=== PATIENT | male | born 1980 | race African-American/Black ===

== ENCOUNTER 2016-04-16 11:03 | Emergency (ER) | payer SELFPAY ==
--- NOTE | 2016-04-16 11:37 | ERRECORD ---
[facility] EMERGENCY RECORD HPI URI (11:29 [facility]) CHIEF COMPLAINT: Patient presents for evaluation of nasal congestion, Patient presents for evaluation of cough. HISTORIAN: History provided by patient, 36M presents with complaints of subjective fever, chills, body aches, and nasal congestion. States symptoms began last night. Denies chest pain or shortness of breath. Denies travel or IV drug use. Reports mild headache, denies neck stiffness. Denies abdominal pain or dysuria. LOCATION: Symptoms are generalized. TIME COURSE: Gradual onset of symptoms, Symptoms are worsening. ASSOCIATED WITH: Associated with chills, Associated with fever, Associated with headache, No associated neck pain, No associated shortness of breath. EXACERBATED BY: Patient's condition exacerbated by nothing. RELIEVED BY: Patient's condition relieved by over the counter medications. ROS (11:31 [facility]) CONSTITUTIONAL: Historian reports chills, reports fever, reports malaise. EYES: Negative eye review of systems, Historian denies eye pain, denies eye discharge, denies vision changes. ENT: Historian reports sinus pain, reports sore throat. congestion. CARDIOVASCULAR: Negative cardiovascular review of systems, Historian denies chest pain, denies palpitations. RESPIRATORY: Negative respiratory review of systems, Historian denies cough, denies shortness of breath. GI: Negative gastrointestinal review of systems, Historian denies abdominal pain, denies constipation, denies diarrhea, denies nausea, denies vomiting. GENITOURINARY MALE: Negative genitourinary review of systems, Historian denies dysuria, denies hematuria. MUSCULOSKELETAL: Negative musculoskeletal review of systems, Historian denies back pain, denies fall, denies injury, denies neck pain. SKIN: Negative skin review of systems, Historian denies rash, denies skin changes. NEUROLOGIC: Negative neurologic review of systems, Historian denies headache. HEMO/LYMPHATIC: Normal hematologic/lymphatic system review, Historian denies abnormal blood clotting. PAST MEDICAL HISTORY (11:10 [facility]) MEDICAL HISTORY: No past medical history, Flu vaccine up to date, Tetanus immunization up to date, Pneumococcal vaccine not up to date. MALE SURGICAL HISTORY: Patient has no surgical history. PSYCHIATRIC HISTORY: No previous psychiatric history. &a-1R&a+25V*p+0X*[id number]*c202B*c15G*c2P*p-0X&a-25V&a+1R Name: Ryan Vazquez : 1980 M36 MedRec: [id number] AcctNum: [id number] Prepared: Joselyn Apr 16, 2016 11:34 by Interface Page [address] [facility] EMERGENCY RECORD SOCIAL HISTORY: Patient drinks socially, Patient denies drug use, Patient has no smoking history. KNOWN ALLERGIES No Known Drug Allergies CURRENT MEDICATIONS (11: [facility]) None VITAL SIGNS (11: [facility]) VITAL SIGNS: BP: 117/88, Pulse: 57, Resp: 18, Temp: 98.2 (Oral), Pain: 8, O2 sat: 96 on Room Air, Time: 04/16/2016 11:09. PHYSICAL EXAM (11:31 [facility]) CONSTITUTIONAL: Vital signs reviewed, Patient afebrile, Pulse normal, Blood pressure normal, Respiratory rate normal, Patient appears non toxic, Patient appears pain free, Patient alert and oriented to person, place and time. HEAD: Head exam normal, Head exam included findings of head atraumatic, normocephalic. EYES: Eye exam normal, Eye exam included findings of eyelids normal to inspection, Pupils equally round and reactive to light, Extraocular muscles intact, no nystagmus. ENT: ENT exam normal, Ear exam normal, external ear normal, tympanic membranes normal, no bleeding, Pharynx exam normal, Uvula exam normal, Tonsil exam normal, Mouth exam normal, mucous membranes moist, teeth normal. NECK: Neck exam normal, Neck exam included findings of normal range of motion, Trachea midline, no meningeal signs, no cervical adenopathy, no tenderness. RESPIRATORY CHEST: Respiratory and chest exam normal, Respiratory exam included findings of no respiratory distress, Breath sounds clear. CARDIOVASCULAR: Cardiovascular assessment normal, Cardiovascular exam included findings of heart rate regular rate and rhythm, Heart sounds normal. ABDOMEN MALE: Abdominal exam included findings of abdomen nontender, Bowel sounds normal, no distension, no mass, no pulsatile masses, no peritoneal signs, no rigidity, no guarding, no rebound, Rovsing's sign absent. BACK: Back exam normal, Back exam included findings of normal inspection, range of motion normal, no tenderness. UPPER EXTREMITY: Upper extremity exam normal, Upper extremity exam included findings of inspection normal, Range of motion normal, Motor strength normal, Sensation intact, Radial pulse normal. LOWER EXTREMITY: Lower extremity exam normal, Lower extremity exam included findings of inspection normal, Range of motion normal, Motor strength normal, Sensation intact, Posterior tibial pulse normal, Pedal pulse normal. NEURO: Neuro exam normal, Neuro exam findings include patient &a-1R&a+25V*p+0X*c5805R*c202B*c15G*c2P*p-0X&a-25V&a+1R Name: Ryan Vazquez : 1980 6 MedRec: [id number] AcctNum: [id number] Prepared: [facility] Apr 16, 2016 11:34 by Interface Page [address] [facility] EMERGENCY RECORD oriented to person, place and time, Speech normal, Gait normal. SKIN: Skin exam normal, Skin exam included findings of skin warm, dry, and normal in color, no rash. PSYCHIATRIC: Psychiatric exam normal, Normal affect. DOCTOR NOTES (11:32 [facility]) TEXT: Patient presented with signs and symptoms consistent with viral syndrome. well appearing, non-toxic patient without evidence of concerning bacterial illness such as meningitis or pneumonia that would require further workup or investigation. Tolerating oral intake without difficulty. Appropriate for outpatient management with oral fluids and antipyretics. Needs follow up with primary physician in the next 2-3 days for re-evaluation. PATIENT STATUS: Patient's status is unchanged since arrival to emergency department. PATIENT PLAN: The patient will be discharged, The patient will follow up with primary care physician. PROBLEM LIST No recorded problems DIAGNOSIS (11:20 [facility]) FINAL: PRIMARY: Viral infection. PRESCRIPTION No recorded prescriptions DISPOSITION PATIENT: Disposition Type: Discharge, Disposition: *Discharge Home. (11:20 [facility]) Patient left the department. (11:28 [facility]) English: SYED=MD Eliana, Girish KMOR=VNANA Shaver, Treva &a-1R&a+25V*p+0X*[id number]*c202B*c15G*c2P*p-0X&a-25V&a+1R Name: Ryan Vazquez : 1980 6 MedRec: [id number] AcctNum: [id number] Prepared: Joselyn Apr 16, 2016 11:34 by Interface Page 3 of 3 pMD MTDD
--- NOTE | 2016-04-16 11:43 | PICIS ---
[facility] EMERGENCY RECORD TRIAGE (WedApr 16, 2016 11:08 [facility]) TRIAGE NOTES: Cough and congestion started last night. Headache and chills. (WedApr 16, 2016 11:08 [facility]) PATIENT: NAME: Ryan Vazquez, AGE: 36, GENDER: male, : Wed1980, TIME OF GREET: WedApr 16, 2016 11:04, PREFERRED LANGUAGE: Danish, ETHNICITY: Not or , ECODE BILLING MAP: [facility], SSN: [id number], Zip Code: [address], KG WEIGHT: 95.71, PHONE: , , , PERSON ID: [id number], PAYMENT: [employer] Self Pay, PCP: none. (WedApr 16, 2016 11:08 KM[facility]) COMPLAINT: Cold symptoms. (WedApr 16, 2016 11:08 KM[facility]) ADMISSION: URGENCY: 4 Non Urgent, ADMISSION SOURCE: Home, TRANSPORT: CAR, BED: ER -03. (WedApr 16, 2016 11:08 [facility]) ASSESSMENT: Assessment: A&OX4. RR EVEN AND UNLABORED., Symptoms began yesterday. (11:10 [facility]) PAIN: Patient complains of pain described as, aching, on a scale 0-10 patient rates pain as 8, Location HEADACHE. (11:10 [facility]) IMMUNIZATIONS: Tetanus not up to date. (11:10 [facility]) SIRS SCORING: Heart Rate 55-109 (0), Temp range 96.8-101.1 (0), respiratory rate 12-24 (0), Mental Status altered: no (0), Infection or Suspected Infection: No. (11:10 [facility]) TRIAGE SCREENING: Patient denies suicidal ideation, Patient denies presence of domestic violence. (11:10 [facility]) PROVIDERS: TRIAGE NURSE: Treva Shaver RN. (Joselyn Apr 16, 2016 11:08 [facility]) VITAL SIGNS: BP 117/88, Pulse 57, Resp 18, Temp 98.2, (Oral), Pain 8, O2 Sat 96, on Room Air, Time 04/16/2016 11:09. (11:09 [facility]) PREVIOUS VISIT ALLERGIES: No Known Drug Allergies. ([facility] Apr 16, 2016 11:08 KMOR) No Known Drug Allergies. (11:10 [facility]) KNOWN ALLERGIES No Known Drug Allergies CURRENT MEDICATIONS (11:09 KM[facility]) None VITAL SIGNS (11:09 [facility]) VITAL SIGNS: BP: 117/88, Pulse: 57, Resp: 18, Temp: 98.2 (Oral), Pain: 8, O2 sat: 96 on Room Air, Time: 04/16/2016 11:09. NURSING ASSESSMENT: ENT (11:13 [facility]) CONSTITUTIONAL: Patient arrives ambulatory, Gait steady, History obtained from patient, Patient appears, uncomfortable, Patient cooperative, Patient alert, Oriented to person, place and time, Skin warm, Skin dry, Skin normal in color, Mucous membranes pink, Mucous membranes moist, Patient is well-groomed, Patient complains of Cough and congestion, cough, congestion, bodyaches started last night. Unknown fever. &a-1R&a+25V*p+0X*l3184T*c202B*c15G*c2P*p-0X&a-25V&a+1R Name: Ryan Vazquez : 1980 M36 MedRec: [id number] AcctNum: [id number] Prepared: Joselyn Apr 16, 2016 11:40 by Interface Page 1 of 5 pMD [facility] EMERGENCY RECORD PAIN: aching pain, on a scale 0-10 patient rates pain as 8, headache. ENT: Ear assessment findings include ear normal to inspection, Nasal assessment findings include nose normal to inspection, Sinuses normal, Nasal mucosa normal, Discharge, thick, from bilateral nare, Congestion, bilaterally, Mouth and throat assessment findings include mouth inspection normal, Uvula normal, Tonsils normal, Mucous membranes pink, and moist, Able to swallow, Speech normal, no associated fever, Associated with headache, frontal. RESPIRATORY/CHEST: Breath sounds clear, Respiratory assessment findings include respiratory effort easy, Respirations regular, Conversing normally, Neck and chest exam findings include trachea midline, Chest expansion equal, Chest movement symmetrical, no signs of distress, Associated with cough, loose, no associated fever. NOTES: Patient tolerated procedure well. NURSING PROCEDURE: DISCHARGE NOTE (11:30 [facility]) DISCHARGE: Patient discharged to home, ambulating without assistance, driving self, unaccompanied, Summary of Care printed/ provided, Transition record given to patient, Discharge instructions given to patient, Simple or moderate discharge teaching performed, by VANNA Tilley, Discharge instructions and follow up reviewed with patient. Pt ambulatory to discharge desk., Above person(s) verbalized understanding of discharge instructions and follow-up care. BELONGINGS: Belongings remain with patient, Valuables remain with patient. HPI URI (11:29 [facility]) CHIEF COMPLAINT: Patient presents for evaluation of nasal congestion, Patient presents for evaluation of cough. HISTORIAN: History provided by patient, 36M presents with complaints of subjective fever, chills, body aches, and nasal congestion. States symptoms began last night. Denies chest pain or shortness of breath. Denies travel or IV drug use. Reports mild headache, denies neck stiffness. Denies abdominal pain or dysuria. LOCATION: Symptoms are generalized. TIME COURSE: Gradual onset of symptoms, Symptoms are worsening. ASSOCIATED WITH: Associated with chills, Associated with fever, Associated with headache, No associated neck pain, No associated shortness of breath. EXACERBATED BY: Patient's condition exacerbated by nothing. RELIEVED BY: Patient's condition relieved by over the counter medications. ROS (11:31 [facility]) CONSTITUTIONAL: Historian reports chills, reports &a-1R&a+25V*p+0X*i3212J*c202B*c15G*c2P*p-0X&a-25V&a+1R Name: Ryan Vazquez : 1980 M36 MedRec: [id number] AcctNum: [id number] Prepared: Joselyn Apr 16, 2016 11:40 by Interface Page 2 of 5 pMD [facility] EMERGENCY RECORD fever, reports malaise. EYES: Negative eye review of systems, Historian denies eye pain, denies eye discharge, denies vision changes. ENT: Historian reports sinus pain, reports sore throat. congestion. CARDIOVASCULAR: Negative cardiovascular review of systems, Historian denies chest pain, denies palpitations. RESPIRATORY: Negative respiratory review of systems, Historian denies cough, denies shortness of breath. GI: Negative gastrointestinal review of systems, Historian denies abdominal pain, denies constipation, denies diarrhea, denies nausea, denies vomiting. GENITOURINARY MALE: Negative genitourinary review of systems, Historian denies dysuria, denies hematuria. MUSCULOSKELETAL: Negative musculoskeletal review of systems, Historian denies back pain, denies fall, denies injury, denies neck pain. SKIN: Negative skin review of systems, Historian denies rash, denies skin changes. NEUROLOGIC: Negative neurologic review of systems, Historian denies headache. HEMO/LYMPHATIC: Normal hematologic/lymphatic system review, Historian denies abnormal blood clotting. PAST MEDICAL HISTORY (11:10 [facility]) MEDICAL HISTORY: No past medical history, Flu vaccine up to date, Tetanus immunization up to date, Pneumococcal vaccine not up to date. MALE SURGICAL HISTORY: Patient has no surgical history. PSYCHIATRIC HISTORY: No previous psychiatric history. SOCIAL HISTORY: Patient drinks socially, Patient denies drug use, Patient has no smoking history. PHYSICAL EXAM (11:31 [facility]) CONSTITUTIONAL: Vital signs reviewed, Patient afebrile, Pulse normal, Blood pressure normal, Respiratory rate normal, Patient appears non toxic, Patient appears pain free, Patient alert and oriented to person, place and time. HEAD: Head exam normal, Head exam included findings of head atraumatic, normocephalic. EYES: Eye exam normal, Eye exam included findings of eyelids normal to inspection, Pupils equally round and reactive to light, Extraocular muscles intact, no nystagmus. ENT: ENT exam normal, Ear exam normal, external ear normal, tympanic membranes normal, no bleeding, Pharynx exam normal, Uvula exam normal, Tonsil exam normal, Mouth exam normal, mucous membranes moist, teeth normal. NECK: Neck exam normal, Neck exam included findings of normal range of motion, Trachea midline, no meningeal signs, no cervical &a-1R&a+25V*p+0X*b7288Y*c202B*c15G*c2P*p-0X&a-25V&a+1R Name: Ryan Vazquez : 1980 M36 MedRec: [id number] AcctNum: [id number] Prepared: [facility] Apr 16, 2016 11:40 by Interface Page 3 of 5 pMD [facility] EMERGENCY RECORD adenopathy, no tenderness. RESPIRATORY CHEST: Respiratory and chest exam normal, Respiratory exam included findings of no respiratory distress, Breath sounds clear. CARDIOVASCULAR: Cardiovascular assessment normal, Cardiovascular exam included findings of heart rate regular rate and rhythm, Heart sounds normal. ABDOMEN MALE: Abdominal exam included findings of abdomen nontender, Bowel sounds normal, no distension, no mass, no pulsatile masses, no peritoneal signs, no rigidity, no guarding, no rebound, Rovsing's sign absent. BACK: Back exam normal, Back exam included findings of normal inspection, range of motion normal, no tenderness. UPPER EXTREMITY: Upper extremity exam normal, Upper extremity exam included findings of inspection normal, Range of motion normal, Motor strength normal, Sensation intact, Radial pulse normal. LOWER EXTREMITY: Lower extremity exam normal, Lower extremity exam included findings of inspection normal, Range of motion normal, Motor strength normal, Sensation intact, Posterior tibial pulse normal, Pedal pulse normal. NEURO: Neuro exam normal, Neuro exam findings include patient oriented to person, place and time, Speech normal, Gait normal. SKIN: Skin exam normal, Skin exam included findings of skin warm, dry, and normal in color, no rash. PSYCHIATRIC: Psychiatric exam normal, Normal affect. EVENTS TRANSFER: Triage to Emergency Emergency Room -03. (11:08 KM[facility]) Removed from Emergency Emergency Room -03. (11:28 [facility]) DOCTOR NOTES (11:32 [facility]) TEXT: Patient presented with signs and symptoms consistent with viral syndrome. well appearing, non-toxic patient without evidence of concerning bacterial illness such as meningitis or pneumonia that would require further workup or investigation. Tolerating oral intake without difficulty. Appropriate for outpatient management with oral fluids and antipyretics. Needs follow up with primary physician in the next 2-3 days for re-evaluation. PATIENT STATUS: Patient's status is unchanged since arrival to emergency department. PATIENT PLAN: The patient will be discharged, The patient will follow up with primary care physician. PROBLEM LIST No recorded problems DIAGNOSIS (11:20 [facility]) FINAL: PRIMARY: Viral infection. DISPOSITION &a-1R&a+25V*p+0X*p3481U*c202B*c15G*c2P*p-0X&a-25V&a+1R Name: Ryan Vazquez : 1980 M36 MedRec: [id number] AcctNum: [id number] Prepared: Joselyn Apr 16, 2016 11:40 by Interface Page 4 of 5 pMD [facility] EMERGENCY RECORD PATIENT: Disposition Type: Discharge, Disposition: *Discharge Home. (11:20 [facility]) Patient left the department. (11:28 [facility]) INSTRUCTION (11:23 [facility]) DISCHARGE: URI NO ANTIBIOTIC TREATMENT ADULT. SPECIAL: Drink lots of fluids. Gatorade if you're not eating. Motrin/Advil 600mg every 6 hours, not for more than 4 days. OTC decongestants for symptoms. Follow up with your regular doctor. If it gets worse, return to the ED. PRESCRIPTION No recorded prescriptions IMAGING (11:32 [facility]) *DISCHARGE INSTRUCTIONS RECEIPT: Image captured from scanner. *SUPPLY CHARGE SHEET: Image captured from scanner. ADMIN DIGITAL SIGNATURE: VANNA Shaver Krista. (11:32 [facility]) MD Monroy Jason. (11:32 [facility]) Enlgish: SYED=MD Monroy Jason KMOR=VANNA Shaver Krista &a-1R&a+25V*p+0X*[id number]*c202B*c15G*c2P*p-0X&a-25V&a+1R Name: George Ryan C : 1980 M36 MedRec: [id number] AcctNum: [id number] Prepared: Joselyn Apr 16, 2016 11:40 by Interface Page 5 of 5 pMD MTDD
== END 2016-04-16 11:25 | disposition home or self-care (01) ==
LOC: BURERS 11:03
DX: B34.9 Viral infection, unspecified (principal)
CPT/HCPCS: 99283

== ENCOUNTER 2016-05-11 11:19 | Emergency (ER) | payer BC, SELFPAY ==
[2016-05-11] MEDS ORDERED: Ibuprofen 800 MG TAB ONE (11:49)
--- NOTE | 2016-05-11 13:54 | PICIS ---
[facility] EMERGENCY RECORD TRIAGE (11:26 LGIB) TRIAGE NOTES: right foot pain since yesterday. denies injury. (11:26 LGIB) PATIENT: NAME: Ryan Vazquez, AGE: 36, GENDER: male, : Wed1980, TIME OF GREET: WedMay 11, 2016 11:20, PREFERRED LANGUAGE: Belarusian, ETHNICITY: Not or , ECODE BILLING MAP: [facility], SSN: [id number], Zip Code: [address], KG WEIGHT: 97.52, PHONE: , , , PERSON ID: [id number], PCP: none. (11:26 LGIB) PAYMENT: Foound. (11:55) COMPLAINT: right foot pain. (11:26 LGIB) ADMISSION: URGENCY: 4 Non Urgent, ADMISSION SOURCE: Home, TRANSPORT: CAR, BED: ER -02. (11:26 LGIB) PROVIDERS: TRIAGE NURSE: Shanda Degroot RN. (11:26 LGIB) PREVIOUS VISIT ALLERGIES: No Known Drug Allergies. (11:26 LGIB) No Known Drug Allergies. (11:27 LGIB) KNOWN ALLERGIES No Known Drug Allergies CURRENT MEDICATIONS (11:26 LGIB) None VITAL SIGNS VITAL SIGNS: BP: 105/78, Pulse: 97, Resp: 16 (Non-Labored), Pain: 9, O2 sat: 97 on Room Air, Time: 05/11/2016 11:27. (11:27 LGIB) Temp: 98.0 (Oral), Time: 05/11/2016 11:28. (11:28 LSMI) NURSING PROCEDURE: DISCHARGE NOTE (11:57 LSMI) DISCHARGE: Patient discharged to home, ambulating without assistance, driving self, unaccompanied, Summary of Care printed/ provided, Transition record given to patient, Discharge instructions given to patient, Simple or moderate discharge teaching performed, Prescriptions given and instructions on side effects given, Name of prescription(s) given: motrin 800 flexeril 10mg. MEDICATION ADMINISTRATION SUMMARY Drug Name: ibuprofen, Dose Ordered: 800 mg, Route: Oral, Status: Given, Time: 11:50 05/11/2016, Detailed record available in Medication Service section. MEDICATION SERVICE (11:50 [facility]) ibuprofen: Order: ibuprofen - Dose: 800 mg : Oral Ordered by: Nicholas England DO Entered by: Nicholas England DO WedMay 11, 2016 11:36 , Acknowledged by: Devorah Corley LVN WedMay 11, 2016 11:49 Documented as given by: Devorah Corley LVN WedMay 11, 2016 11:50 Patient, Medication, Dose, Route and Time verified prior to &a-1R&a+25V*p+0X*[id number]*c202B*c15G*c2P*p-0X&a-25V&a+1R Name: Ryan Vazquez : 1980 M36 MedRec: [id number] AcctNum: [id number] Prepared: WedMay 14, 2016 10:53 by Interface Page 1 of 4 pMD [facility] EMERGENCY RECORD administration. Site: Medication administered P.O., Correct patient, time, route, dose and medication confirmed prior to administration, Patient advised of actions and side-effects prior to administration, Allergies confirmed and medications reviewed prior to administration, Patient in position of comfort, Side rails up, Cart in lowest position, Call light in reach. HPI FOOT (WedMay 12, 2016 06:15 [facility]) CHIEF COMPLAINT: Patient presents for evaluation of pain, to the right foot. HISTORIAN: History provided by patient. MECHANISM OF INJURY: Unknown mechanism, Pt states that he was at work today and his foot was hurting for him to stand on. He has no hx of injury and no other issues at this time with the leg or ankle. Incidentally he states having some continued pain in the back of his right shoulder that is worsened by movements and hurts him when he is at work and has to pull items, which is often required of him. He states having come to the ED for his shoulder before but has had no follow-up for this issue. LOCATION: Symptoms are localized, most severe in the first metatarsal, Radiation is, proximally. QUALITY: Pain is dull in nature, described as aching, described as throbbing. SEVERITY: Maximum severity of symptoms moderate, Currently symptoms are moderate. TIME COURSE: Gradual onset of symptoms, 1, days priror to arrival, There has been no change in the patient's symptoms over time, are intermittent. ASSOCIATED WITH: No associated ankle pain, No associated coolness to touch, No associated distal injury, No associated distal neuro complaint, No associated erythema, No associated fever, No associated hip pain, No associated inability to ambulate, No associated inability to bear weight, No associated knee pain, No associated open wounds, Associated with pain on walking, No associated proximal injury, No associated tingling, No associated warmth, No associated weakness distal to injury. EXACERBATED BY: Patient's condition exacerbated by extension, Patient's condition exacerbated by flexion, Patient's condition exacerbated by walking, Patient's condition exacerbated by bearing weight. RELIEVED BY: Patient's condition relieved by nothing, Patient's condition relieved by nothing because patient has not tried anything for relief. ROS (WedMay 12, 2016 06:18 MBRI) CONSTITUTIONAL: Negative constitutional review of systems. MUSCULOSKELETAL: Historian denies back pain, denies deformity, denies fall, denies injury, denies joint redness, reports joint stiffness, denies joint swelling, denies myalgias. SKIN: Historian denies cellulitis, denies induration, denies rash. &a-1R&a+25V*p+0X*z4776V*c202B*c15G*c2P*p-0X&a-25V&a+1R Name: Ryan Vazquez : 1980 M36 MedRec: [id number] AcctNum: [id number] Prepared: [facility] May 14, 2016 10:53 by Interface Page 2 of 4 D [facility] EMERGENCY RECORD NEUROLOGIC: Historian denies focal weakness, denies paresthesias, denies sensory changes. NOTES: All systems reviewed, negative except as described above. PAST MEDICAL HISTORY (11:27 LGIB) MEDICAL HISTORY: No past medical history. MALE SURGICAL HISTORY: Patient has no surgical history. PSYCHIATRIC HISTORY: No previous psychiatric history. SOCIAL HISTORY: Patient drinks socially, Patient denies drug use, Patient has no smoking history. PHYSICAL EXAM (WedMay 12, 2016 06:19 MBRI) CONSTITUTIONAL: Vital Signs Reviewed, Patient afebrile, Pulse normal, Blood pressure normal, Respiratory rate normal, Patient appears non toxic, Patient appears pain free, Patient alert and oriented to person, place and time, Nursing notes reviewed. NECK: Neck exam included findings of normal range of motion, Trachea midline. BACK: Back exam included findings of normal inspection, range of motion normal, no tenderness. UPPER EXTREMITY: Upper extremity exam included findings of inspection normal, Range of motion normal, Motor strength normal, Sensation intact, Radial pulse normal, no cyanosis, no clubbing, no edema. LOWER EXTREMITY: Ankle examination normal findings, right ankle, no abrasions, no deformity, no ecchymosis, no swelling, no hematoma, no erythema, no warmth, no tenderness to palpation, full range of motion, Foot examination normal findings, right foot, no abrasions, no deformity, no ecchymosis, no swelling, no erythema, no warmth, Foot tenderness, right foot, dorsal, medial, tenderness of the right proximal great toe, right medial foot, with noecchymosis contusion puncture or abrasion right posterior shoulder, and upper thoracic back, with tenderness. NEURO: Neuro exam findings include patient oriented to person, place and time, Speech normal, Gait normal. SKIN: Skin exam included findings of skin warm, dry, and normal in color. EVENTS TRANSFER: Triage to Emergency Emergency Room -02. (WedMay 11, 2016 11:26 LGIB) Removed from Emergency Emergency Room -02. (12:00 LSMI) O2SAT INTERPRETATION (11:36 MBRI) O2SAT: Oxygen saturation interpretation: Normal. DOCTOR NOTES (WedMay 12, 2016 06:22 MBRI) TEXT: Pt evaluated at this time and appears stable. No &a-1R&a+25V*p+0X*z3406M*c202B*c15G*c2P*p-0X&a-25V&a+1R Name: Ryan Vazquez : 1980 M36 MedRec: [id number] AcctNum: [id number] Prepared: Joselyn May 14, 2016 10:53 by Interface Page 3 of 4 pMD [facility] EMERGENCY RECORD findings to suggest sig illness or issue requiring hospitalization or further intervention at this time. Plan of care discussed with pt and questions answered. Pt was informed of reasons for follow-up and return and they stated understanding. Pt is stable for d/c home at this time. PROBLEM LIST No recorded problems DIAGNOSIS (11:37 MBRI) FINAL: PRIMARY: shoulder pain - muscle strain, ADDITIONAL: RIGHT foot pain. DISPOSITION PATIENT: Disposition Type: Discharge, Disposition: *Discharge Home, Condition: Good. (11:37 MBRI) Patient left the department. (12:00 LSMI) INSTRUCTION (11:39 MBRI) DISCHARGE: SHOULDER SPRAIN, FOOT SPRAIN. FOLLOWUP: [facility], [facility], [address] [place] [address], [facility] [address], , Follow up with Primary Care Physician as needed. SPECIAL: We hope you feel better soon. Follow-up with your PCP Tylenol or Advil for Pain Return to work in 1 day. PRESCRIPTION (11:38 MBRI) Flexeril: TABLET : 10 mg : ORAL : Quantity: 1 Unit: tab(s) Route: ORAL Schedule: every 8 hours PRN Dispense: 30 May substitute. Refills: No Refills . NOTES: No refills. Motrin: TABLET : 800 mg : ORAL : Quantity: 1 Unit: tab(s) Route: ORAL Schedule: every 8 hours PRN Dispense: 30 May substitute. Refills: No Refills . NOTES: ^s=No refills No refills. IMAGING (11:58 LSMI) *DISCHARGE INSTRUCTIONS RECEIPT: Image captured from scanner. *SUPPLY CHARGE SHEET: Image captured from scanner. ADMIN (WedMay 14, 2016 10:46 MBRI) DIGITAL SIGNATURE: DO England Matthew. English: LGIB=VANNA Degroot, Shanda LSMI=TABBY Corley Leah MBRI=DO [place] Matthew &a-1R&a+25V*p+0X*j1973Y*c202B*c15G*c2P*p-0X&a-25V&a+1R Name: Ryan Vazquez Maximilian : 1980 M36 MedRec: [id number] AcctNum: [id number] Prepared: WedMay 14, 2016 10:53 by Interface Page 4 of 4 pMD [facility] MEDICATION RECONCILIATION You were seen in the Emergency Department on: WedMay 11, 2016 KNOWN ALLERGIES No Known Drug Allergies MEDICATIONS GIVEN WHILE IN THE EMERGENCY DEPARTMENT ibuprofen - Dose: 800 milligram(s) : Oral HOME MEDICATIONS None Notes from the emergency department Reviewed with patient PRESCRIPTIONS (2) Printed (2) Flexeril : TABLET : 10 mg : ORAL Quantity: 1, Unit: tab(s), Route: ORAL, Schedule: every 8 hours PRN, Dispense: 30 &a-1R&a+25V*p+0X*q2863M*c202B*c15G*c2P*p-0X&a-25V&a+1R Name: Ryan Vazquez : 1980 M36 MedRec: [id number] AcctNum: [id number] Prepared: Joselyn May 14, 2016 10:53 by Interface pMTerence BARNHART
== END 2016-05-11 11:56 | disposition home or self-care (01) ==
LOC: BURERS 11:19
DX: S46.911A Strain of unspecified muscle, fascia and tendon at shoulder and upper arm level, right arm, initial encounter (principal); M79.671 Pain in right foot; X58.XXXA Exposure to other specified factors, initial encounter
CPT/HCPCS: 99282

== ENCOUNTER 2016-06-09 12:22 | Emergency (ER) | payer BC | END 2016-06-09 13:28 | disposition home or self-care (01) | LOC: BURERS 12:22 | DX: M65.4 Radial styloid tenosynovitis [de Quervain] (principal) | CPT/HCPCS: 99283 ==